=== PATIENT | male | born 1970 | race Caucasian/White ===

== ENCOUNTER 2022-07-09 08:41 | Day surgery (SDC) | payer MEDICARE, MEDICAID ==
[2022-07-09] MEDS ORDERED: Cyanocobalamin (Vitamin B12) 1,000 MCG/ML SDV IM ONE (09:30)
[2022-07-09] MEDS ORDERED: Glycopyrrolate 0.2 MG/ML 2 ML SDV IVPUSH ONE (09:30)
[2022-07-09] MEDS ORDERED: Lactated Ringers 1,000 ML IV ONE (09:30)
[2022-07-09] MEDS ORDERED: fentaNYL 50 MCG/ML SDV ONE (09:51)
[2022-07-09] MEDS ORDERED: Midazolam 1 MG/ML 2 ML SDV ONE (09:51)
[2022-07-09] MEDS ORDERED: Propofol 200 MG/20 ML SDV ONE (09:51)
[2022-07-09] MEDS ORDERED: MVI, Adult with Vitamin K 10 ML, Thiamine 200 MG, Zinc/Copper/Manganese/Selenium 1 ML i... IV ONE ×4 (10:30)
[2022-07-09] MEDS ORDERED: Pantoprazole 40 MG Vial IVPUSH ONE (12:00)
== END 2022-07-09 12:55 | disposition home or self-care (01) ==
LOC: JP.SDS 08:41
PROVIDERS: ATTEND Surgery
DX: R13.10 Dysphagia, unspecified (principal); K25.9 Gastric ulcer, unspecified as acute or chronic, without hemorrhage or perforation; Z98.84 Bariatric surgery status
CPT/HCPCS: 43239; 87081; C9113; J2250; J2704; J3010; J3411; J3420; J3490; J7120

== ENCOUNTER 2023-01-14 09:34 | Day surgery (SDC) | payer MEDICARE, MEDICAID ==
[2023-01-14] MEDS ORDERED: Lactated Ringers 1,000 ML IV ONE (10:00)
[2023-01-14] MEDS ORDERED: Cyanocobalamin (Vitamin B12) 1,000 MCG/ML SDV IM ONE (10:00)
[2023-01-14] MEDS ORDERED: fentaNYL 100 MCG/2 ML SDV ONE (10:17)
[2023-01-14] MEDS ORDERED: Midazolam 1 MG/ML 2 ML SDV ONE (10:17)
[2023-01-14] MEDS ORDERED: Propofol 200 MG/20 ML SDV ONE (10:17)
[2023-01-14] MEDS ORDERED: MVI, Adult with Vitamin K 10 ML, Thiamine 200 MG, Zinc/Copper/Manganese/Selenium 1 ML i... IV ONE ×4 (11:00)
== END 2023-01-14 13:45 | disposition home or self-care (01) ==
LOC: JP.SDS 09:34
PROVIDERS: ATTEND Student in an Organized Health Care Education/Training Program
DX: K29.50 Unspecified chronic gastritis without bleeding (principal); K44.9 Diaphragmatic hernia without obstruction or gangrene; I10 Essential (primary) hypertension; J45.909 Unspecified asthma, uncomplicated; G47.33 Obstructive sleep apnea (adult) (pediatric); F32.A Depression, unspecified
CPT/HCPCS: 88305; J2250; J2704; J3010; J3411; J3490; J7120